=== PATIENT | female | born 1975 | race Caucasian/White ===

== ENCOUNTER 2017-12-15 10:09 | Outpatient (CLI) | payer BC ==
[2017-12-15 10:40] LABS: TOTAL HEMOGLOBIN 14.9 G/dl (12.0-16.0)
== END 2017-12-15 23:59 | disposition home or self-care (01) ==
LOC: RT 10:09 → EDBD 10:30 → RT 23:59
PROVIDERS: ATTEND Internal Medicine Pulmonary Disease
DX: J44.9 Chronic obstructive pulmonary disease, unspecified (principal); F17.210 Nicotine dependence, cigarettes, uncomplicated
CPT/HCPCS: 85018; 94010; 94727; 94729; A4353; A6255; A6410; A6446; A6449; J7030